=== PATIENT | male | born 1950 | race Caucasian/White ===

== ENCOUNTER 2022-05-20 16:34 | Outpatient (CLI) | payer MEDICARE, SELFPAY ==
[2022-05-20 10:11] LABS: Albumin* 4.8 g/dL (3.3-5.0)
[2022-05-20 10:12] LABS: Chloride* 99 mmol/L (96-114); Potassium* 4.4 mmol/L (3.6-5.1); Sodium* 137 mmol/L (135-149)
[2022-05-20 10:14] LABS: Aspartate Amino Transferase* 32 U/L (12-35); Bilirubin Total* 0.7 mg/dL (0.1-1.5); Blood Urea Nitrogen* 23 mg/dL (7-30); Carbon Dioxide* 32 mmol/L (20-32); Cholesterol* 189 mg/dL (90-199); Creatinine* 1.2 mg/dL (0.5-1.5); Estimated Glomerular Filt Rate 65 ml/min; Total Protein* 7.1 g/dL (6.0-8.3)
[2022-05-20 10:15] LABS: Alanine Aminotransferase* 29 U/L (4-50); Alkaline Phosphatase* 56 U/L (40-150); Calcium* 9.4 mg/dL (8.4-10.6); Glucose* 113 mg/dL (60-115); HDL Cholesterol* 76 mg/dL (>=40); LDL Cholesterol Calculated 99 mg/dL (<100); Triglycerides* 71 mg/dL (40-149)
[2022-05-20 10:43] LABS: PSA Screen* 0.64 ng/mL (0.10-4.00)
== END 2022-05-20 16:35 | disposition home or self-care (01) ==
PROVIDERS: PCP Internal Medicine; Visit Provider Internal Medicine
DX: Z00.00 Encounter for general adult medical examination without abnormal findings (principal); N52.9 Male erectile dysfunction, unspecified; E78.5 Hyperlipidemia, unspecified; I10 Essential (primary) hypertension; Z12.5 Encounter for screening for malignant neoplasm of prostate
CPT/HCPCS: 80053; 80061; 84153

== ENCOUNTER 2022-10-30 09:08 | Outpatient (CLI) | payer MEDICARE, SELFPAY ==
[2022-10-30 17:28] LABS: Albumin* 4.6 g/dL (3.3-5.0); Chloride* 104 mmol/L (96-114); Potassium* 4.5 mmol/L (3.6-5.1); Sodium* 139 mmol/L (135-149)
[2022-10-30 17:30] LABS: Creatinine* 1.5 mg/dL (0.5-1.5); Estimated Glomerular Filt Rate 49 ml/min
[2022-10-30 17:31] LABS: Alanine Aminotransferase* 25 U/L (4-50); Alkaline Phosphatase* 47 U/L (40-150); Aspartate Amino Transferase* 45 U/L (12-35); Bilirubin Total* 0.8 mg/dL (0.1-1.5); Blood Urea Nitrogen* 36 mg/dL (7-30); Calcium* 9.8 mg/dL (8.4-10.6); Carbon Dioxide* 28 mmol/L (20-32); Glucose* 109 mg/dL (60-115); Total Protein* 7.5 g/dL (6.0-8.3)
== END 2022-10-30 09:09 | disposition home or self-care (01) ==
PROVIDERS: PCP Internal Medicine; Visit Provider Internal Medicine
DX: N28.9 Disorder of kidney and ureter, unspecified (principal)
CPT/HCPCS: 80053

== ENCOUNTER 2022-11-03 11:34 | Outpatient (CLI) | payer MEDICARE, SELFPAY ==
[2022-11-03 14:27] LABS: Albumin* 4.6 g/dL (3.3-5.0); Chloride* 100 mmol/L (96-114); Sodium* 139 mmol/L (135-149)
[2022-11-03 14:28] LABS: Potassium* 4.7 mmol/L (3.6-5.1)
[2022-11-03 14:30] LABS: Alanine Aminotransferase* 27 U/L (4-50); Alkaline Phosphatase* 43 U/L (40-150); Aspartate Amino Transferase* 33 U/L (12-35); Bilirubin Total* 0.7 mg/dL (0.1-1.5); Blood Urea Nitrogen* 28 mg/dL (7-30); Carbon Dioxide* 33 mmol/L (20-32); Creatinine* 1.2 mg/dL (0.5-1.5); Estimated Glomerular Filt Rate 65 ml/min; Glucose* 111 mg/dL (60-115); Total Protein* 7.4 g/dL (6.0-8.3)
[2022-11-03 14:31] LABS: Calcium* 9.5 mg/dL (8.4-10.6)
== END 2022-11-03 11:35 | disposition home or self-care (01) ==
LOC: NFLDREF 11:36
PROVIDERS: PCP Internal Medicine; Visit Provider Internal Medicine
DX: N28.9 Disorder of kidney and ureter, unspecified (principal)
CPT/HCPCS: 80053

== ENCOUNTER 2023-01-19 13:00 | Outpatient (RCR) | payer MEDICARE, SELFPAY | END 2023-04-20 12:39 | disposition home or self-care (01) | PROVIDERS: PCP Internal Medicine; Visit Provider Internal Medicine | DX: M25.551 Pain in right hip (principal); Z51.89 Encounter for other specified aftercare | CPT/HCPCS: 97012; 97110; 97140; 97162 ==

== ENCOUNTER 2023-06-22 09:20 | Outpatient (CLI) | payer MEDICARE, SELFPAY | END 2023-06-22 09:21 | disposition home or self-care (01) | LOC: NFLDREF 06-23 17:50 | PROVIDERS: PCP Internal Medicine; Referring Provider Internal Medicine; Visit Provider Internal Medicine | DX: E78.5 Hyperlipidemia, unspecified (principal); I10 Essential (primary) hypertension; N28.9 Disorder of kidney and ureter, unspecified; N52.9 Male erectile dysfunction, unspecified; Z13.9 Encounter for screening, unspecified | CPT/HCPCS: 80053; 80061; 84153 ==

== ENCOUNTER 2023-06-30 10:02 | Outpatient (CLI) | payer MEDICARE, SELFPAY ==
--- NOTE | 2023-06-30 10:15 | CRLHL7_ITS ---
For Patients: As a result of the Century Cures Act, medical imaging exams and procedure reports are released immediately into your electronic medical record. You may view this report before your referring provider. If you have questions, please contact your health care provider. INDICATION: Memory loss. COMPARISON: 02/18/2021. TECHNIQUE: Multiplanar T1, T2, FLAIR and diffusion-weighted imaging. FINDINGS: Mild generalized volume loss. Scattered patchy T2/FLAIR signal hyperintensity within the white matter of both cerebral hemispheres are nonspecific but likely represent chronic deep white matter small ischemic changes. No intracranial hemorrhage. Compensatory mild dilatation ventricular system. Intracranial vascular flow voids are preserved. No mass effect or midline shift. No restricted diffusion to suggest acute ischemia. Bilateral orbits are unremarkable. Normal appearing sella. Visualized paranasal sinuses and mastoid air cells are unremarkable. IMPRESSION: 1. No acute intracranial abnormality. 2. Mild generalized volume loss. Scattered patchy T2/FLAIR signal hyperintensity within the white matter both cerebral hemispheres are nonspecific but likely represent chronic deep white matter small vessel ischemic changes. Dictated by Compa Huston MD @ 06/30/2023 1:55:13 PM (Electronically Signed)
== END 2023-06-30 10:03 | disposition home or self-care (01) ==
LOC: MRI 10:03
PROVIDERS: PCP Internal Medicine; Visit Provider Psychiatry & Neurology Neurology
DX: R41.3 Other amnesia (principal)
CPT/HCPCS: 70551

== ENCOUNTER 2023-07-02 06:56 | Emergency (ER) | payer MEDICARE, OTHER, SELFPAY ==
[2023-07-02 07:02] VITALS: BP 140/77; PULSE 75; RESP 16; TEMP 37.3; O2SAT 93; BMI 25.8
--- NOTE | 2023-07-02 08:13 | ED.GENADULT ---
HPI - General Adult General Chief complaint: Laceration/Wound Stated complaint: Fall-head lac Time Seen by Provider: 07/02/23 07:09 Source: patient and family Mode of arrival: ambulatory Limitations: no limitations History of Present Illness HPI narrative: 72-year-old male with a history of mild cognitive impairment presents to the emergency department after mechanical fall in his bathroom. He woke this morning and did not want to turn on the lights, as not to wake his . He was not experiencing any dizziness, neurological changes, chest pain. He simply tripped, falling forward, striking his head on the corner of the bathroom counter. He did not lose consciousness. The commotion okay his who attended to him quickly as well. No history of seizures, no intoxication. He does not take any anticoagulants. He was impressed with the amount of blood coming from the laceration but it seems to be slowing down now. He is brought to the emergency department by his spouse. He has a mild headache but denies any vision changes, focal neurological deficits. No prior history of significant head injury. agrees that he is acting at his baseline with no significant neurological changes. He did have an MRI just 2 days ago of his brain as part of a cognitive impairment workup. He has not taken any Tylenol or ibuprofen to help with symptoms. Past medical history notable for cognitive impairment, anxiety, hypertension, hyperlipidemia. Home meds reviewed, accurate as listed. No known drug allergies. He has a soft [place] accent and is the father in law of 1 of our pediatricians. We have a peyman conversation regarding barbecue. ROS notable for the skin symptoms as above only. Otherwise denies generalized, neurological, cardiac, musculoskeletal or other changes. Related Data Home Medications Medication Instructions Recorded Confirmed sildenafil (pulm.hypertension) 20 20 mg PO Q24H PRN 05/22/22 07/02/23 mg tablet aspirin 81 mg capsule 81 mg PO QDAY 11/03/22 07/02/23 cholecalciferol (vitamin D3) 50 50 mcg PO QDAY 11/03/22 07/02/23 mcg (2,000 unit) capsule gabapentin 100 mg capsule 100 mg PO Q12H 11/03/22 07/02/23 thiamine HCl (vitamin B1) 50 mg 50 mg PO QDAY 11/03/22 07/02/23 tablet Previous Rx's Medication Instructions Recorded donepezil 5 mg tablet 5 mg PO QDAY Dementia #90 tabs 06/24/23 escitalopram oxalate 10 mg tablet 10 mg PO QDAY Depression #90 tabs 06/24/23 lisinopril 20 1 tab PO DAILY Hypertension #90 06/24/23 mg-hydrochlorothiazide 12.5 mg tabs tablet memantine 10 mg tablet 10 mg PO BID Dementia #90 tabs 06/24/23 simvastatin 20 mg tablet 20 mg PO .Bedtime Hyperlipidemia 06/24/23 #90 tabs Allergies Allergy/AdvReac Type Severity Reaction Status Date / Time No Known Allergies Allergy Unknown Unverified 06/24/23 13:07 [facility] Medical History Elevated serum creatinine ?R79.89 - Other specified abnormal findings of blood chemistry (ICD-10) Dementia ?F03.90 - Unspecified dementia, unspecified severity, without behavioral disturbance, psychotic disturbance, mood disturbance, and anxiety (ICD-10) Renal insufficiency ?N28.9 - Disorder of kidney and ureter, unspecified (ICD-10) Right hip pain ?M25.551 - Pain in right hip (ICD-10) Hyperlipidemia ?E78.5 - Hyperlipidemia, unspecified (ICD-10) Anxiety ?F41.9 - Anxiety disorder, unspecified (ICD-10) Cognitive dysfunction ?F09 - Unspecified mental disorder due to known physiological condition (ICD-10) Encounter for pre-operative examination ?Z01.818 - Encounter for other preprocedural examination (ICD-10) Social History What is your current living situation?: I presently have a place to live Problems where you live: declined to answer In the past 12 months, utilities in danger of being shut off: no In past 12 months, lack of transportation kept you from medical appts, meetings, work, or getting things needed for daily living: no In the past 12 mos, have been you worried that your food would run out before you had money to buy more?: never true In the past 12 mos, the food you bought just didn't last and you didn't have money to buy more?: never true Smoking Status: Former smoker Do you use any of these nicotine containing products: None Non-prescribed substance use: denies use How often does anyone, including family, friends and others, physically hurt you: never How often does anyone, including family, friends and others, insult or talk down to you: never How often does anyone, including family, friends and others, threaten you with harm: never How often does anyone, including family, friends and others, scream or curse at you: never Little interest or pleasure in doing things: not at all Feeling down, depressed, or hopeless: not at all Exam Const: Vital Signs, click to edit/add: Vital Signs - 24 hr 07/02/23 07:02 Temperature 99.1 F Pulse Rate [Pulse Oximeter] 75 Respiratory Rate 16 Blood Pressure [Le ft Upper Arm] 140/77 H Pulse Oximetry 93 Oxygen Delivery Me thod Room Air Documenting provider has reviewed patient's vital signs: yes Common normals: no apparent distress General appearance: cooperative, comfortable and well kempt HENMT: Other: Scalp with obvious 3 cm curved flap style thick laceration on the center of the forehead just above the nasal bridge. It is full epidermis and dermis down to the muscular layer. There is also a 2 cm more superficial laceration of the right upper eyelid, nonbleeding. Lid function is not impaired though there is bruising. Eye: Common normals: PERRL, EOMs intact bilaterally and conjunctivae normal Conjunctiva: conjunctiva(e) normal Pupil: PERRL Other: Bruising to right eyelid and orbit, no orbital fracture signs, crepitus or deformity. No tenderness with range of motion of eyes or visual impairment. Neck & C-Spine: Common normals: full ROM and no lymphadenopathy Cervical spine: cervical ROM normal; no pain with cervical ROM Resp: Common normals: normal respiratory effort, no use of accessory muscles and clear to auscultation bilaterally Effort & inspection: able to speak in complete sentences Auscultation: clear to auscultation bilaterally Cardio: Common normals: regular rate, regular rhythm, S1 normal heart sound, S2 normal heart sound and no murmurs Rate: regular rate Rhythm: regular rhythm Heart sounds: S1 normal and S2 normal Neuro: Cleveland Coma Scale: document GCS findings Cleveland coma scale eye opening: Spontaneous (4) [place] coma scale verbal response: Orientated (5) Dave coma scale motor response: Obey commands (6) Dave coma scale total score: 15 Speech: speech normal Motor exam: strength 5/5 throughout and no tremor noted Psych: Common normals: thought process normal Appearance: well kempt Mood and affect: euthymic mood Thought process: normal thought process Thought content: normal thought content Other: Answers questions well, no repetitive questions or agitation. Memory very good for clinical scenario. Skin: Narrative: Facial laceration as described above and and bruising of right eyelid, no other areas of injury. Course Course ED Course: 3 cm laceration on forehead is oozing slightly, closure recommended. No significant signs of severe head injury or concussion, not anticoagulated. Do not recommend head CT. Procedure, laceration repair. Verbal consent obtained, wiped with alcohol wipe and injected with 2 mL of 1% lidocaine with epinephrine with good anesthesia. Area then cleansed with Betadine x2. Examined for foreign body, none seen. Five simple interrupted sutures of 4-0 Monocryl were placed with good reapproximation, cosmetic closure and hemostasis. Well tolerated. Covered with antibiotic ointment and to Band-Aids. Laceration on right eyelid re-examined and hemostatic, not repaired. Counseled on signs and symptoms of head injury. Rest recommended, lots of water today. Alarm symptoms including seizures, loss of consciousness, persistent vomiting or worsening neurological status would warrant ED evaluation. Suture removal in 7-10 days, will need to schedule a clinic appointment or have these removed by an appropriate clinician. Do not recommend head CT. They verbalized understanding and agreement and have no further questions. Vital Signs Vital signs: Initial Vital Signs Temperature 99.1 F 07/02/23 07:02 Temperature Source Temporal Artery Scan 07/02/23 07:02 Pulse Rate 75 07/02/23 07:02 Respiratory Rate 16 07/02/23 07:02 Blood Pressure 140/77 H 07/02/23 07:02 Blood Pressure Mean 98 07/02/23 07:02 Blood Pressure Position Supine 07/02/23 07:02 Pulse Oximetry 93 07/02/23 07:02 Oxygen Delivery Method Room Air 07/02/23 07:02 Vital Signs Temperature 99.1 F 07/02/23 07:02 Pulse Rate 75 07/02/23 07:02 Respiratory Rate 16 07/02/23 07:02 Blood Pressure 140/77 H 07/02/23 07:02 Pulse Oximetry 93 07/02/23 07:02 Oxygen Delivery Method Room Air 07/02/23 07:02 Temperature 99.1 F 07/02/23 07:02 Pulse Rate 75 07/02/23 07:02 Respiratory Rate 16 07/02/23 07:02 Blood Pressure 140/77 H 07/02/23 07:02 Pulse Oximetry 93 07/02/23 07:02 Oxygen Delivery Method Room Air 07/02/23 07:02 Discharge Plan Discharge Clinical Impression: Facial laceration Patient Disposition: Home w/ Parent or Adult Condition: Improved Instructions: Laceration (DC) Additional Instructions: As we discussed, there were 5 stitches placed in the laceration in the middle of your forehead. These will need to be taken out in about a week to 10 days. You may make an appointment in the clinic or have these taken out by other appropriate means. Please leave the dressing in place for today. Once daily, remove the bandage, gently clean away any debris and reapply antibiotic ointment or plain Vaseline once daily. Replace a new dressing or large Band-Aid. I would expect some mild symptoms of head injury or mild concussions such as fatigue, headache, dizziness. It is okay to use Tylenol 1000 mg every 6 hours and or ibuprofen 400 mg 3 times daily. Rest for today, light activity for tomorrow and then gradually increasing activity as tolerated. If there is any loss of consciousness, neurological changes, seizures, persistent vomiting, I would recommend repeat evaluation Activity Level: Activity as Tolerated Discharge Diet: Regular Prescriptions: No Action sildenafil (pulm.hypertension) 20 mg tablet 20 mg PO Q24H PRN simvastatin 20 mg tablet 20 mg PO .Bedtime Qty: 90 3RF memantine 10 mg tablet 10 mg PO BID Qty: 90 3RF lisinopril-hydrochlorothiazide 20-12.5 mg tablet 1 tab PO DAILY Qty: 90 3RF escitalopram oxalate 10 mg tablet 10 mg PO QDAY Qty: 90 3RF donepezil 5 mg tablet 5 mg PO QDAY Qty: 90 3RF gabapentin 100 mg capsule 100 mg PO Q12H aspirin 81 mg capsule 81 mg PO QDAY thiamine HCl (vitamin B1) 50 mg tablet 50 mg PO QDAY cholecalciferol (vitamin D3) 50 mcg (2,000 unit) capsule 50 mcg PO QDAY Follow Up/Referrals: Remy Marquez MD [Primary Care Provider] - Stand Alone Forms: MyHealth Info Instructions
--- NOTE | 2023-07-02 08:46 | ED.NURSE ---
Patient left ED prior to receiving paper discharge instruction.
== END 2023-07-02 08:46 | disposition home or self-care (01) ==
LOC: ED 08:11
PROVIDERS: Emergency Provider Family Medicine; PCP Internal Medicine
DX: S01.81XA Laceration without foreign body of other part of head, initial encounter (principal); W01.10XA Fall on same level from slipping, tripping and stumbling with subsequent striking against unspecified object, initial encounter; Y92.012 Bathroom of single-family (private) house as the place of occurrence of the external cause
CPT/HCPCS: 12011; 99283

== ENCOUNTER 2023-12-15 14:19 | Outpatient (CLI) | payer MEDICARE, SELFPAY ==
--- NOTE | 2023-12-15 14:30 | MR_ITS ---
Patient: ROSEMARY BARNEY Facility:?[facility] Patient ID:?[id number] Site Patient ID:?[id number]. Site :?[id number] Study:?MRI-Head W/O-12/15/2023 3:32:16 PM Ordering Physician:ABDELRAHMAN MCKEON Final Report: INDICATION: Alzheimer`s dementia. TECHNIQUE: Multiplanar multisequence noncontrast MR images of the brain. COMPARISON: MRI brain 06/30/2023, CT brain 02/18/2021. FINDINGS: Prominence of the ventricles and sulci compatible with mild diffuse cerebral volume loss. No mass effect or midline shift. Stable scattered FLAIR hyperintensities in the supratentorial white matter, typical for mild chronic microvascular ischemic changes. Stable chronic lacunar infarction left basal ganglia associated with ex vacuo dilatation of the left frontal horn. No intracranial hemorrhage or pathologic extra-axial fluid collection. Punctate focus of diffusion restriction within the posterior left occipital lobe (series 5, image 35), compatible with acute to subacute infarction. The major arterial flow voids of the skullbase are preserved. The globes are symmetric. Mild paranasal sinus mucosal thickening. Trace mastoid fluid bilaterally. IMPRESSION: 1. Punctate acute to subacute infarction within the left occipital lobe. 2. Stable chronic lacunar infarction left basal ganglia. 3. Stable mild chronic microvascular ischemic changes and diffuse cerebral volume loss. Dictated by Margarito Cartwright MD @ 12/15/2023 3:55:15 PM Signed by:?Margarito Cartwright MD @12/15/2023 3:55:15 PM (Electronic Signature)
== END 2023-12-15 14:20 | disposition home or self-care (01) ==
LOC: MRI 14:21
PROVIDERS: PCP Internal Medicine; Visit Provider Psychiatry & Neurology Neurology
DX: G30.9 Alzheimer's disease, unspecified (principal); I63.81 Other cerebral infarction due to occlusion or stenosis of small artery; I67.82 Cerebral ischemia; F02.80 Dementia in other diseases classified elsewhere, unspecified severity, without behavioral disturbance, psychotic disturbance, mood disturbance, and anxiety
CPT/HCPCS: 70551

== ENCOUNTER 2024-02-25 13:52 | Outpatient (CLI) | payer MEDICARE, SELFPAY ==
--- OUTSIDE RECORDS SUMMARY | 2024-02-25 13:55 | XMS_ITS | Clinical Summary ---
Author Organization [facility] Address [place], [place] [address] Care Team Providers Care Sane Nurse Name Role Phone Duke De León MD Primary Care Provider [phone] Allergies No known active allergies Medications Medication Sig Dispensed Refills Start Date End Date Status ATENOLOL 25 MG TAB take 1 tablet (25 mg) by oral route once daily 30 1 year 08/24/2007 Active HYDROCHLOROTHIAZIDE 50 MG TAB take 1 tablet (50 mg) by oral route once daily 30 1 year 08/24/2007 Active K-DUR 20 MEQ TABIndications:Hypopot assemia take 1 tablet (20 meq) by oral route once daily with food 30 2 08/24/2007 Active Active Problems Problem Noted Date Diagnosed Date Hypopotassemia 08/24/2007 Unspecified essential hypertension Other and unspecified hyperlipidemia Immunizations Name Administration Dates Next Due AMB Influenza, IIV3 (Age >=3 years)(Flu Clinic [facility]) 06/17/2013 Influenza, IIV3 (Age >=3 years) 08/03/2007 Td (Age >=7 Years) 08/12/2005 Social History Tobacco Use Types Packs/Day Years Used Date Smoking Tobacco: Former Comments:quit 15 years ago Alcohol Use Standard Drinks/Week Comments Yes 0 (1 standard drink = 0.6 oz pure alcohol) drinks a couple weeks a month- a couple drinks a day when drinkning Sex and Gender Information Value Date Recorded Sex Assigned at Not on file Gender Identity Not on file Sexual Orientation Not on file Obstetrics History Last Filed Vital Signs Vital Sign Reading Time Taken Comments Blood Pressure 145/87 12/02/2007 9:16 AM CDT Pulse 157 12/02/2007 9:12 AM CDT Temperature 36.7 ??C (98.1 ??F) 12/02/2007 9:12 AM CD T Respiratory Rate 18 02/18/2007 1:00 PM CDT Oxygen Saturation 97% 02/18/2007 1:00 PM CDT Inhaled Oxygen Concentration - - Weight 84.8 kg (187 lb) 12/02/2007 9:12 AM CDT Height - - Body Mass Index - - Plan of Treatment Upcoming Encounters Date Type Department Care Team (Late st Contact Info) Description 02/25/2024 2:00 PM CDT Ancillary Procedure Advance [facility] at [facility] [address] [place] [address] Health Maintenance Due Date Last Done Comments Tdap 1961 Depression screening for age 12+ 1962 BMI (ht and wt on same day) for age 18+ 1968 Hepatitis C screening for age 18-79 1968 Colonoscopy through age 75 12/25/1995 Lipids for age 45-75 12/25/1995 Zoster (shingles) series for age 50+ (1 of 2) 2000 Tetanus booster 08/12/2015 08/12/2005 Pneumococcal series for age 65+ (1 of 1 - PCV) 12/25/2015 COVID-19 vaccine series ( - 2022- season) 2023 Influenza for age 65+ 05/15/2024 06/17/2013, 007 Care Teams Sane Nurse Relationship Specialty Start Date End Date Duke De León MD [address] [facility] [address] [place] [address] PCP - General 12/27/05
== END 2024-02-25 13:53 | disposition home or self-care (01) ==
PROVIDERS: PCP Internal Medicine; Visit Provider Psychiatry & Neurology Neurology
DX: I63.9 Cerebral infarction, unspecified (principal); I35.1 Nonrheumatic aortic (valve) insufficiency; I34.0 Nonrheumatic mitral (valve) insufficiency; I37.1 Nonrheumatic pulmonary valve insufficiency; G30.9 Alzheimer's disease, unspecified
CPT/HCPCS: 93306

== ENCOUNTER 2024-07-19 09:59 | Outpatient (CLI) | payer MEDICARE, SELFPAY ==
--- OUTSIDE RECORDS SUMMARY | 2024-07-21 10:58 | XMS_ITS | Clinical Summary ---
Author Organization [facility] Address [place], [place] [address] Care Team Providers Care Basketball Player Name Role Phone Duke De León MD Primary Care Provider [phone] Allergies No known active allergies Medications Medication [...] Mass Index - - Plan of Treatment Health Maintenance Due Date Last Done Comments [...] PCV) 12/25/2015 COVID-19 vaccine series ( - 2023- season) 2024 Influenza for age 65+ 05/15/2024 06/17/2013, 007 Care Teams Basketball Player Relationship Specialty Start Date End Date Duke De León MD [address] [place] [address] [address] [place], [place] [id number] PCP - General 12/27/05
== END 2024-07-19 10:00 | disposition home or self-care (01) ==
LOC: NFLDREF 07-21 10:56
PROVIDERS: PCP Internal Medicine; Referring Provider Internal Medicine; Visit Provider Internal Medicine
DX: E78.5 Hyperlipidemia, unspecified (principal); I10 Essential (primary) hypertension; Z12.5 Encounter for screening for malignant neoplasm of prostate
CPT/HCPCS: 80053; 80061; G0103

== ENCOUNTER 2024-07-22 14:08 | Outpatient (CLI) | payer MEDICARE, SELFPAY ==
--- OUTSIDE RECORDS SUMMARY | 2024-07-26 09:33 | XMS_ITS | Clinical Summary ---
Author Organization [facility] Address [place], [place] [address] Care Team Providers Care Millroom Supervisor Name Role Phone Duke De León MD Primary Care Provider [phone] Allergies No known active allergies Medications Medication [...] Influenza, IIV3 (Age >=3 years)(Flu Clinic [facility]) 06/17/2013 Influenza, IIV3 (Age >=3 years) [...] age 65+ 05/15/2024 06/17/2013, 007 Care Teams Millroom Supervisor Relationship Specialty Start Date End Date Duke De León MD [address] [place] [address] [address] [place], [place] [address] PCP - General 12/27/05
== END 2024-07-22 14:09 | disposition home or self-care (01) ==
LOC: NFLDREF 07-26 09:32
PROVIDERS: PCP Internal Medicine; Referring Provider Internal Medicine; Visit Provider Internal Medicine
DX: R32 Unspecified urinary incontinence (principal)
CPT/HCPCS: 87086

== ENCOUNTER 2024-09-28 14:27 | Emergency (ER) | payer MEDICARE, SELFPAY ==
[2024-09-28 14:47] VITALS: BP 99/56; PULSE 86; RESP 18; TEMP 37; O2SAT 92; BMI 27.3
[2024-09-28 15:27] LABS: PCR FLU A POSITIVE PCR FLU A (Negative); PCR FLU B Negative PCR FLU B (Negative); PCR RSV Negative PCR RSV (Negative); SARS PCR* Negative SARS-CoV-2 (Negative)
[2024-09-28 16:42] VITALS: BP 128/57; PULSE 74; RESP 19; TEMP 37.2; O2SAT 96
--- NOTE | 2024-09-28 16:58 | ED_ITS ---
HPI - General Adult General Date Seen: 09/28/24 Chief complaint: Weakness Stated complaint: Huge mental status change-flu symptoms too, fever Time Seen by Provider: 09/28/24 16:56 History of Present Illness HPI narrative: 73 yo M with history of dementia and cognitive impairment, renal insufficiency, hyperlipidemia, anxiety, hypertension, pulmonary hypertension, who presents to the ER today with his . She is concerned that ?something is going on. ? He presents to the ER today with his , who provides his history. He is not able to provide good history because of his dementia and cognitive impairment he has dementia but is able live at home with his notes that they were visit by their grandchildren over the weekend and their grandchildren had high fever and cough. She developed symptoms of fever and cough to days ago on Thursday if he developed symptoms yesterday. He started having a cough, complaining of sore throat yesterday during the day. He felt warm but she was not able to measure an objective fever. He just could melissa ate with thermometer because of his dementia. Overnight he also had change in mental status. He is normally demented and needs a lot of supervision but is generally docile and restful at night. Last night he was restless. He was up multiple times walking. He seemed confused he was trying to go in the closets and rooms where he does not normally go. She noted that he seemed a little bit unsteady as well while walking. He did not fall. He was up most of the night and she had to put a lot of effort into keeping him safe. It was difficult for her to redirect him back to bed. Because of the symptoms, she brought him to the ER this afternoon. Although he has a cough he is not having any difficulty breathing. He has had a poor appetite but no vomiting. No diarrhea. He has had 2 episodes of incontinence of urine, which is unusual for him. No rash. Related Data Home Medications ?Medication ?Instructions ?Recorded ?Confirmed sildenafil (pulm.hypertension) 20 20 mg PO Q24H PRN 05/22/22 07/21/24 mg tablet cholecalciferol (vitamin D3) 50 50 mcg PO QDAY 11/03/22 07/21/24 mcg (2,000 unit) capsule gabapentin 100 mg capsule 100 mg PO Q12H 11/03/22 07/21/24 thiamine HCl (vitamin B1) 50 mg 50 mg PO QDAY 11/03/22 07/21/24 tablet clopidogrel 75 mg tablet 75 mg PO DAILY 07/12/24 07/21/24 simvastatin 20 mg tablet 20 mg PO QHS Hyperlipidemia 07/26/24 07/26/24 Previous Rx's ?Medication ?Instructions ?Recorded donepezil 5 mg tablet 5 mg PO QDAY Dementia #90 tabs 06/24/23 memantine 10 mg tablet 10 mg PO BID Dementia #90 tabs 06/24/23 escitalopram oxalate 20 mg tablet 20 mg PO QDAY #90 tabs 05/23/24 lisinopril 20 1 tab PO DAILY Hypertension #90 08/24/24 mg-hydrochlorothiazide 12.5 mg tabs tablet oseltamivir 75 mg capsule (Tamiflu) 75 mg PO BID 5 days #10 caps 09/28/24 Allergies Allergy/AdvReac Type Severity Reaction Status Date / Time No Known Allergies Allergy Unknown Verified 09/06/24 09:07 [facility] Medical History (Updated 09/28/24 @ 18:15 by Esdras Hernandez MD) Urinary incontinence ?R32 - Unspecified urinary incontinence (ICD-10) Dementia ?F03.90 - Unspecified dementia, unspecified severity, without behavioral disturbance, psychotic disturbance, mood disturbance, and anxiety (ICD-10) Renal insufficiency ?N28.9 - Disorder of kidney and ureter, unspecified (ICD-10) Right hip pain ?M25.551 - Pain in right hip (ICD-10) Hyperlipidemia ?E78.5 - Hyperlipidemia, unspecified (ICD-10) Anxiety ?F41.9 - Anxiety disorder, unspecified (ICD-10) Encounter for pre-operative examination ?Z01.818 - Encounter for other preprocedural examination (ICD-10) Social History (Updated 07/21/24 @ 15:56 by Brenda Castellano ~ [facility] [place]) What is your current living situation?: I presently have a place to live Problems where you live: declined to answer In the past 12 months, utilities in danger of being shut off: no In past 12 months, lack of transportation kept you from medical appts, meetings, work, or getting things needed for daily living: no In the past 12 mos, have been you worried that your food would run out before you had money to buy more?: never true In the past 12 mos, the food you bought just didn't last and you didn't have money to buy more?: never true Smoking Status: Former smoker Do you use any of these nicotine containing products: None Second hand tobacco smoke exposure: No How often do you have a drink containing alcohol: never How often do you have six or more drinks on one occasion: Never AUDIT-C Alcohol total score: 0 Non-prescribed substance use: denies use How often does anyone, including family, friends and others, physically hurt you : never How often does anyone, including family, friends and others, insult or talk down to you: never How often does anyone, including family, friends and others, threaten you with harm: never How often does anyone, including family, friends and others, scream or curse at you: never service: No Exam Narrative: Exam Narrative: Examined in the hallway because the ER is full during the influenza epidemic. Therefore I am not able to fully disrobed this patient for exam. Constitutional: Appears well-developed and well-nourished. Alert. Polite and cooperative. Poor historian because of his dementia. He is able to Greet me and tell me his 1st and last name. provides the rest of his history. Non toxic. HENT: Head: Atraumatic. Nose: Nose normal. Mouth/Throat: Wearing a face mask, removed for exam. Oral mucosa is clear and moist. no trismus. Pharynx normal. Tonsils symmetric. No tonsillar enlargement, erythema, or exudate. Eyes: Conjunctivae normal. EOM normal. Pupils equal, round, and reactive to light. No scleral icterus. Neck: Normal range of motion. Neck supple. No tracheal deviation present. Cardiovascular: Normal rate, regular rhythm. No gallop. No friction rub. No murmur heard. Symmetric radial artery pulses Pulmonary/Chest: Occasional wet sounding cough but no production of sputum. Effort normal. No stridor. No respiratory distress. No wheezes. No rales. No rhonchi . No tenderness. Abdominal: Soft. No distension. No mass. No tenderness. No rebound. No guarding. Musculoskeletal: RUE: Normal range of motion. No tenderness. No deformity LUE: Normal range of motion. No tenderness. No deformity RLE: Normal range of motion. No edema. No tenderness. No deformity LLE: Normal range of motion. No edema. No tenderness. No deformity Neurological: Alert and oriented to person, and knows that he is in the hospital, but not oriented to date. Has baseline dementia. At this point seems at baseline but last night was apparently much more confused. Normal strength. CN II-VII intact. No sensory deficit. GCS eye subscore is 4. GCS verbal subscore is 5. GCS motor subscore is 6. Normal coordination Skin: Skin is warm and dry. No rash noted. No pallor. Normal capillary refill. Psychiatric: Normal mood. Normal affect. Limited by dementia. Const: Vital Signs, click to edit/add: Vital Signs - 24 hr 09/28/24 14:47 09/28/24 16:42 09/28/24 18:42 Temperature 98.6 F 99.0 F Pulse Rate [Pulse Oximeter] 86 74 83 Respiratory Rate 18 19 18 Blood Pressure [Ri ght Upper Arm] 99/56 L 128/57 L 134/63 Pulse Oximetry 92 96 92 Oxygen Delivery Me thod Room Air Room Air Room Air Course Vital Signs Vital signs: Initial Vital Signs Temperature 98.6 F 09/28/24 14:47 Temperature Source Temporal Artery Scan 09/28/24 14:47 Pulse Rate 86 09/28/24 14:47 Pulse Rhythm Regular 09/28/24 14:47 Respiratory Rate 18 09/28/24 14:47 Blood Pressure 99/56 L 09/28/24 14:47 Blood Pressure Mean 70 09/28/24 14:47 Blood Pressure Position Sitting 09/28/24 14:47 Pulse Oximetry 92 09/28/24 14:47 Oxygen Delivery Method Room Air 09/28/24 14:47 Vital Signs Temperature 98.6 F 09/28/24 14:47 Pulse Rate 86 09/28/24 14:47 Respiratory Rate 18 09/28/24 14:47 Blood Pressure 99/56 L 09/28/24 14:47 Pulse Oximetry 92 09/28/24 14:47 Oxygen Delivery Method Room Air 09/28/24 14:47 Temperature 99.0 F 09/28/24 16:42 Pulse Rate 83 09/28/24 18:42 Respiratory Rate 18 09/28/24 18:42 Blood Pressure 134/63 09/28/24 18:42 Pulse Oximetry 92 09/28/24 18:42 Oxygen Delivery Method Room Air 09/28/24 18:42 Medications Administered Medications: Generic Name Dose Route Start Last Admin Trade Name Leonel PRN Reason Stop Dose Admin Oseltamivir Phosphate 75 mg 09/28/24 18:08 09/28/24 18:30 Oseltamivir Phosphate 75 Mg Capsule PO 09/28/24 18:09 75 mg ONCE ONE Administration Medical Decision Making MDM Narrative Medical decision making narrative: This patient presents for evaluation of cough, sore throat, so fever and chills, also associated with change in his mental status from his baseline dementia. Symptoms began yesterday. This is consistent with respiratory infection, with likely superimposed delirium. Viral testing is positive for influenza A. Negative for COVID and RSV. Chest x-ray is negative for pneumonia. With his altered mental status broad differential is considered. Head CT scan shows no evidence for any acute intracranial hemorrhage. He is not having any focal deficits to suggest an acute stroke. Urinalysis is normal. No sign of UTI.. Suspect that this is delirium from his influenza. There is no signs at this point of serious bacterial infection such as OM, RPA, epiglottitis, DOG BARBER, strep pharyngitis, pneumonia, sinusitis, meningitis, bacteremia, serious bacterial infection. reports that he has had diminished appetite today but he has not had any vomiting or diarrhea. He is drinking adequate fluids here in the ER. No significant gastrointestinal symptoms at this point. He does have a mild increase in BUN and creatinine. Baseline creatinine is 1.5, today of 2.1. He is producing urine after drinking fluids here in the ER. With his delirium and restlessness last night, his and I had a conversation about whether on he is safe to manage at home. From a respiratory/hemodynamic standpoint he is not displaying signs of respiratory distress, hypoxia, sepsis that would require hospitalization. However with delirium and altered mental status, we wanted to make sure that he was safe in his home environment. says that he was quite a handful last night but she is comfortable managing him at home environment. Therefore , discharge home for now. Precautions for return to the ER reviewed. will start him on Tamiflu with 1st dose being given here in the ER today to try to prevent worsening illness. Return to ED for worsening confusion, agitation, falls, trouble breathing, dehydration, fever > 103, protracted vomiting, or other worsening. Lab Data Labs: Lab Results 09/28/24 09/28/24 09/28/24 Range/Units 14:41 17:24 17:45 WBC 10.16 (4.50-11.00) K/uL RBC 4.33 (4.30-5.90) m/uL Hgb 13.4 L (13.5-17.5) gm/dL Hct 41.1 (37.0-53.0) % MCV 95 (80-100) fL MCH 31 (26-34) pg MCHC 33 (32-36) gm/dL RDW Coeff of Quin 13.6 (11.5-15.5) % Plt Count 193 (140-440) K/uL Neut % (Auto) 84.6 H (42.0-72.0) % Lymph % (Auto) 4.6 L (20-44) % Nicholas % (Auto) 10.2 (0.0-11.0) % Eos % (Auto) 0.0 (0.0-7.0) % Baso % (Auto) 0.2 (0.0-3.0) % Neut # (Auto) 8.60 H (1.7-7.0) K/uL Lymph # (Auto) 0.50 L (0.90-2.90) K/uL Nicholas # (Auto) 1.00 H (0.00-0.90) K/UL Eos # (Auto) 0.00 (0.00-0.50) K/uL Baso # (Auto) 0.02 (0.00-0.30) K/uL Abs Immat Gran (auto) 0.04 (0.00-0.30) K/uL Imm/Tot Granulo (auto) 0.4 % Sodium 138 (135-149) mmol/L Potassium 4.5 (3.6-5.1) mmol/L Chloride 103 (96-114) mmol/L Carbon Dioxide 24 (20-32) mmol/L Anion Gap 11 (7-15) mEq/L BUN 37 H (7-30) mg/dL Creatinine 2.1 H (0.5-1.5) mg/dL Estimated Creat Clear 31.33 Estimated GFR 33 ml/min Glucose 108 (60-115) mg/dL Lactate 0.8 (0.5-1.9) mmol/L Calcium 9.1 (8.4-10.6) mg/dL Urine Color Yellow (Yellow) Urine Appearance Clear (Clear) Urine pH 5.5 (5.0-8.5) Ur Specific [place] 1.025 (1.000-1.030) Urine Protein 1+ A (Negative) Urine Glucose (UA) Negative (Negative) Urine Ketones Negative (Negative) Urine Blood Trace-intact A (Negative) Urine Nitrite Negative (Negative) Urine Bilirubin Negative (Negative) Urine Urobilinogen 0.2 (0.2-1.0) Ur Leukocyte Esterase Negative (Negative) Urine RBC 0-2 (0-2) Urine WBC 0-2 (0-5) Ur Squamous Epith Cells Few (None-Few) Urine Bacteria Few A (None) SARS-CoV-2 (PCR) Negative SARS-CoV-2 (Negative) Influenza Type A (PCR) POSITIVE PCR FLU A A (Negative) Influenza Type B (PCR) Negative PCR FLU B (Negative) RSV (PCR) Negative PCR RSV (Negative) Imaging Data CT scan - head: Attestation: I have reviewed the pertinent imaging results. My impression: Negative Radiologist's impression: IMPRESSION: No acute intracranial abnormality. Chest x-ray: Attestation: I have reviewed the pertinent imaging results. My impression: No focal infiltrates Radiologist's impression: IMPRESSION: Negative chest. Discharge Plan Discharge Clinical Impression: Influenza A Patient Disposition: Home w/ Parent or Adult Condition: Guarded Instructions: Influenza (DC) Additional Instructions: As we discussed, please come back to the ER right away if you have any concerns, especially worsening confusion, worsening unsteadiness, falls, trouble breathing or worsening cough, chest pain, or if he develops higher fever, uncontrolled nausea vomiting, if he will not drink enough or develops dehydration. Please continue the Tamiflu twice daily for 5 days,. His next dose is due tomorrow morning Try to help him drink plenty of fluids and stay hydrated. Add solid food as he will tolerate. Continue his other regular medications for now. Prescriptions: New oseltamivir [Tamiflu] 75 mg capsule 75 mg PO BID 5 Days Qty: 10 0RF No Action sildenafil (pulm.hypertension) 20 mg tablet 20 mg PO Q24H PRN memantine 10 mg tablet 10 mg PO BID Qty: 90 3RF donepezil 5 mg tablet 5 mg PO QDAY Qty: 90 3RF gabapentin 100 mg capsule 100 mg PO Q12H thiamine HCl (vitamin B1) 50 mg tablet 50 mg PO QDAY cholecalciferol (vitamin D3) 50 mcg (2,000 unit) capsule 50 mcg PO QDAY clopidogrel 75 mg tablet 75 mg PO DAILY simvastatin 20 mg tablet 20 mg PO QHS escitalopram oxalate 20 mg tablet 20 mg PO QDAY Qty: 90 0RF lisinopril-hydrochlorothiazide 20-12.5 mg tablet 1 tab PO DAILY Qty: 90 3RF Follow Up/Referrals: Remy Marquez MD [Primary Care Provider] - Stand Alone Forms: [employer] Medical Info Instructions
--- NOTE | 2024-09-28 17:23 | CRLHL7_ITS ---
For Patients: As a result of the Cures Act, medical imaging exams and procedure reports are released immediately into your electronic medical record. You may view this report before your referring provider. If you have questions, please contact your health care provider. INDICATION: Flu cough fever TECHNIQUE: Two view chest. FINDINGS: The lungs are clear. The heart, mediastinum and pulmonary vessels are of normal size. There is no evidence of pleural disease. IMPRESSION: Negative chest. Dictated by Sonia Garnett MD @ 09/28/2024 6:37:04 PM (Electronically Signed)
--- NOTE | 2024-09-28 17:24 | CRLHL7_ITS ---
For Patients: As a result of the Century Cures Act, medical imaging exams and procedure reports are released immediately into your electronic medical record. You may view this report before your referring provider. If you have questions, please contact your health care provider. INDICATION: Altered mental status, FluA + TECHNIQUE: CT of the head was performed without IV contrast. COMPARISON: Report 12/15/2023. FINDINGS: Parenchyma: No acute hemorrhage, infarction, or mass. Mild scattered periventricular white matter hypoattenuation is nonspecific and is favored to represent chronic small vessel ischemic disease. Ventricles and extra-axial spaces: Mild involutional changes. Visualized paranasal sinuses: Mild mucosal thickening of the bilateral maxillary sinuses. Mastoid air cells: Clear. Bones: No focal abnormality. Additional comment: None. IMPRESSION: No acute intracranial abnormality. Please note that all CT scans at this facility use dose modulation, iterative reconstruction, and/or weight-based dosing when appropriate to reduce radiation dose to as low as reasonably achievable. Dictated by Bashir Ambrose MD @ 09/28/2024 6:33:59 PM (Electronically Signed)
[2024-09-28 17:47] LABS: Lactate* 0.8 mmol/L (0.5-1.9)
[2024-09-28 17:48] LABS: Basophils Absolute Auto 0.02 K/uL (0.00-0.30); Basophils Percent Auto 0.2 % (0.0-3.0); Hematocrit 41.1 % (37.0-53.0); Hemoglobin* 13.4 gm/dL (13.5-17.5); Immature Granulocytes Abs Auto 0.04 K/uL (0.00-0.30); Immature Granulocytes Pct Auto 0.4 %; Lymphocytes Percent Auto 4.6 % (20-44); Mean Corpuscular HGB Conc 33 gm/dL (32-36); Mean Corpuscular Hemoglobin 31 pg (26-34); Mean Corpuscular Volume 95 fL (80-100); Monocytes Percent Auto 10.2 % (0.0-11.0); Neutrophils Percent Auto 84.6 % (42.0-72.0); Platelet Count* 193 K/uL (140-440); RDW Coefficient of Variation % 13.6 % (11.5-15.5); Red Blood Count 4.33 m/uL (4.30-5.90); White Blood Count* 10.16 K/uL (4.50-11.00)
--- OUTSIDE RECORDS SUMMARY | 2024-09-28 17:51 | XMS_ITS | Clinical Summary ---
Author Organization [facility] Address [place], [place] [address] Care Team Providers Care Exercise Physiology Professor Name Role Phone Duke De León MD Primary Care Provider [phone] Allergies No known active allergies Medications ATENOLOL 25 MG TAB take 1 tablet (25 mg) by oral route once daily 30 1 year 08/24/2007 Active HYDROCHLOROTHIAZ CHIKI 50 MG TAB take 1 tablet (50 mg) by oral route once daily 30 1 year 08/24/2007 Active K-DUR 20 MEQ TABIndications:H ypopotassemia take 1 tablet (20 meq) by oral route once daily with food 30 2 08/24/2007 Active Active Problems Problem Noted Date Diagnosed Date Hypopotassemia 08/24/2007 Unspecified essential hypertension Other and unspecified hyperlipidemia Immunizations Name Administration Dates Next Due AMB Influenza, IIV3 (Age >=3 years)([facility]) 06/17/2013 Influenza, IIV3 (Age >=3 years) 08/03/2007 [...] Recorded Sex Assigned at Not on file 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 Gender Identity Not on file Sexual Orientation Not on file Obstetrics History Last Filed Vital Signs Vital Sign Reading Time Taken Comments Blood Pressure 145/87 12/02/2007 9:16 AM CDT Pulse 157 12/02/2007 9:12 AM CDT Temperature 36.7 C (98.1 F) 12/02/2007 9:12 AM CDT Respiratory Rate 18 02/18/2007 1:00 PM CDT [...] booster 08/12/2015 08/12/2005 Pneumococcal series for age 50+ (1 of 1 - PCV) 12/25/2015 COVID-19 vaccine series (2023- season) 2024 Influenza for age 65+ 05/15/2024 06/17/2013, 007 RSV vaccine for adults or pr egnancy (1 - 1-dose 75+ series) 2025 Care Teams Exercise Physiology Professor Relationship Specialty Start Date End Date Duke De León MD [address] [place] [id number] PCP - General 12/27/05
[2024-09-28 17:54] LABS: Slide Review Reflex No
[2024-09-28 17:54] LABS: Appearance Urine Clear (Clear); Bilirubin Urine Negative (Negative); Blood Urine Trace-intact (Negative); Color Urine Yellow (Yellow); Glucose Urine Negative (Negative); Ketones Urine Negative (Negative); Leukocyte Esterase Urine Negative (Negative); Nitrite Urine Negative (Negative); Protein Urine 1+ (Negative); Specific Gravity Urine 1.025 (1.000-1.030); Urobilinogen Urine 0.2 (0.2-1.0); pH Urine 5.5 (5.0-8.5)
[2024-09-28 18:04] LABS: Chloride* 103 mmol/L (96-114); Potassium* 4.5 mmol/L (3.6-5.1); Sodium* 138 mmol/L (135-149)
[2024-09-28 18:07] LABS: Anion Gap 11 mEq/L (7-15); Carbon Dioxide* 24 mmol/L (20-32); Creatinine* 2.1 mg/dL (0.5-1.5); Est. Creatinine Clearance* 31.33; Estimated Glomerular Filt Rate 33 ml/min
[2024-09-28 18:08] LABS: Blood Urea Nitrogen* 37 mg/dL (7-30); Calcium* 9.1 mg/dL (8.4-10.6); Glucose* 108 mg/dL (60-115)
[2024-09-28 18:27] LABS: Bacteria Urine Few; RBC Urine 0-2 (0-2); Squamous Epithelial Cell Urine Few (None-Few); WBC Urine 0-2 (0-5)
[2024-09-28] MEDS: OSELTAMIVIR PHOSPHATE 75 MG CAPSULE PO (18:30)
[2024-09-28 18:42] VITALS: BP 134/63; PULSE 83; RESP 18; O2SAT 92
== END 2024-09-28 19:15 | disposition home or self-care (01) ==
PROVIDERS: Emergency Provider Emergency Medicine; PCP Internal Medicine
DX: J09.X2 Influenza due to identified novel influenza A virus with other respiratory manifestations (principal); R82.90 Unspecified abnormal findings in urine
CPT/HCPCS: 36415; 70450; 71046; 80048; 81001; 83605; 85025; 87086; 87631; 99283; 99284; A9270

== ENCOUNTER 2024-12-27 11:30 | Outpatient (RCR) | payer MEDICARE, SELFPAY ==
--- NOTE | 2024-07-05 09:36 | URNOTE ---
Prior auth is not required for Robert ([id number]). Services are based on medical necessity and follow medicare guidelines.
[2024-07-12 11:51] VITALS: BP 106/63; PULSE 61; RESP 16; TEMP 36.7; O2SAT 95
[2024-07-12] MEDS: ACETAMINOPHEN 325 MG TABLET 650 MG PO (12:08)
[2024-07-12] MEDS: LORATADINE 10 MG TABLET PO (12:08)
[2024-07-12] MEDS: 0.9 % SODIUM CHLORIDE 500 ML 500 ML 30 ML IV (12:30)
[2024-07-12] MEDS: [UNRECOGNIZED DRUG - MIXTURE] 259 MG IVPB (12:30)
[2024-07-26 11:39] VITALS: BP 121/72; PULSE 57; RESP 16; TEMP 35.7; O2SAT 97
[2024-07-26] MEDS: LORATADINE 10 MG TABLET PO (11:42)
[2024-07-26] MEDS: ACETAMINOPHEN 325 MG TABLET 650 MG PO (11:42)
[2024-07-26] MEDS: [UNRECOGNIZED DRUG - MIXTURE] 258 MG IVPB (12:04)
[2024-08-09 11:37] VITALS: BP 128/69; PULSE 64; RESP 16; TEMP 35.8; O2SAT 96
[2024-08-09] MEDS: LORATADINE 10 MG TABLET PO (12:01)
[2024-08-09] MEDS: ACETAMINOPHEN 325 MG TABLET 650 MG PO (12:01)
[2024-08-09] MEDS: 0.9 % SODIUM CHLORIDE 500 ML IV (12:21)
[2024-08-09] MEDS: SODIUM CHLORIDE 0.9 % (FLUSH) 10 ML SYRINGE IVF (12:21)
[2024-08-09] MEDS: [UNRECOGNIZED DRUG - MIXTURE] 259 MG IVPB (12:34)
[2024-08-23] MEDS: ACETAMINOPHEN 325 MG TABLET 650 MG PO (11:52)
[2024-08-23] MEDS: LORATADINE 10 MG TABLET PO (11:54)
[2024-08-23] MEDS: SODIUM CHLORIDE 0.9 % (FLUSH) 10 ML SYRINGE IVF (11:54)
[2024-08-23] MEDS: 0.9 % SODIUM CHLORIDE 500 ML IV (11:54)
[2024-08-23 12:05] VITALS: BP 116/60; PULSE 69; RESP 16; TEMP 36.5; O2SAT 96
[2024-08-23] MEDS: [UNRECOGNIZED DRUG - MIXTURE] 259 MG IVPB (12:18)
[2024-09-06 08:54] VITALS: BP 105/65; PULSE 56; RESP 16; TEMP 36.3; O2SAT 93
[2024-09-06] MEDS: SODIUM CHLORIDE 0.9 % (FLUSH) 10 ML SYRINGE IVF ×2 (09:29→11:22)
[2024-09-06] MEDS: ACETAMINOPHEN 325 MG TABLET 650 MG PO (09:29)
[2024-09-06] MEDS: LORATADINE 10 MG TABLET PO (09:29)
[2024-09-06] MEDS: [UNRECOGNIZED DRUG - MIXTURE] 258 MG IVPB (10:19)
--- NOTE | 2024-09-12 15:52 | ONC.NURNOTE ---
phoned billing office with questions about $4300 bill for 1st infusion- reports that they were not paying out of pocket at [facility]. Jenny in billing will look into the charges and call this blog writer back. Billing is asking us to talk to patient about if enrolled in a copay program for the medication- this office is unaware of programs.
[2024-09-20 11:40] VITALS: BP 115/64; PULSE 64; RESP 16; TEMP 36.1; O2SAT 96
[2024-09-20] MEDS: ACETAMINOPHEN 325 MG TABLET 650 MG PO (11:52)
[2024-09-20] MEDS: LORATADINE 10 MG TABLET PO (11:52)
[2024-09-20] MEDS: [UNRECOGNIZED DRUG - MIXTURE] 260 MG IVPB (12:11)
[2024-10-04 11:48] VITALS: BP 112/68; PULSE 69; RESP 16; TEMP 36.1; O2SAT 95
[2024-10-04 11:51] VITALS: BP 112/68; PULSE 69; RESP 16; TEMP 36.1; O2SAT 95
--- NOTE | 2024-10-04 11:51 | ONC.NURNOTE ---
Pt present for infusion. RN noted pt was in the ER for neuro changes and fever. Positive for Influenza and treated with Tamiflu. RN called [facility] and got ok to treat from Dr. Muñoz.
[2024-10-04] MEDS: ACETAMINOPHEN 325 MG TABLET 650 MG PO (11:57)
[2024-10-04] MEDS: LORATADINE 10 MG TABLET PO (11:57)
[2024-10-04] MEDS: 0.9 % SODIUM CHLORIDE 500 ML IV (11:58)
[2024-10-04] MEDS: SODIUM CHLORIDE 0.9 % (FLUSH) 10 ML SYRINGE IVF (11:58)
[2024-10-04] MEDS: [UNRECOGNIZED DRUG - MIXTURE] 260 MG IVPB (12:25)
[2024-10-18 11:39] VITALS: BP 103/58; PULSE 69; RESP 14; TEMP 36.1; O2SAT 97
[2024-10-18] MEDS: LORATADINE 10 MG TABLET PO (11:51)
[2024-10-18] MEDS: ACETAMINOPHEN 325 MG TABLET 650 MG PO (11:51)
[2024-10-18] MEDS: SODIUM CHLORIDE 0.9 % (FLUSH) 10 ML SYRINGE IVF (11:52)
[2024-10-18] MEDS: 0.9 % SODIUM CHLORIDE 500 ML IV (11:52)
[2024-10-18] MEDS: [UNRECOGNIZED DRUG - MIXTURE] 260 MG IVPB (12:20)
[2024-11-01 11:45] VITALS: BP 120/65; PULSE 61; RESP 16; TEMP 36.6; O2SAT 94
[2024-11-01] MEDS: LORATADINE 10 MG TABLET PO (12:02)
[2024-11-01] MEDS: ACETAMINOPHEN 325 MG TABLET 650 MG PO (12:03)
[2024-11-01] MEDS: [UNRECOGNIZED DRUG - MIXTURE] 258.5 MG IVPB (12:32)
[2024-11-01] MEDS: SODIUM CHLORIDE 0.9 % (FLUSH) 10 ML SYRINGE IVF (13:35)
[2024-11-15 11:37] VITALS: BP 108/67; PULSE 67; RESP 16; TEMP 36.4; O2SAT 95
[2024-11-15] MEDS: ACETAMINOPHEN 325 MG TABLET 650 MG PO (12:01)
[2024-11-15] MEDS: LORATADINE 10 MG TABLET PO (12:02)
[2024-11-15] MEDS: [UNRECOGNIZED DRUG - MIXTURE] 258 MG IVPB (12:23)
[2024-11-29] MEDS: ACETAMINOPHEN 325 MG TABLET 650 MG PO (12:05)
[2024-11-29] MEDS: LORATADINE 10 MG TABLET PO (12:05)
[2024-11-29] MEDS: 0.9 % SODIUM CHLORIDE 250 ml IV (12:15)
[2024-11-29] MEDS: [UNRECOGNIZED DRUG - MIXTURE] 259 MG IVPB (12:33)
[2024-11-29] MEDS: SODIUM CHLORIDE 0.9 % (FLUSH) 10 ML SYRINGE IVF (12:33)
[2024-12-13 11:39] VITALS: BP 148/69; PULSE 51; RESP 16; TEMP 35.9; O2SAT 97
[2024-12-13] MEDS: ACETAMINOPHEN 325 MG TABLET 650 MG PO (12:00)
[2024-12-13] MEDS: LORATADINE 10 MG TABLET PO (12:00)
[2024-12-13] MEDS: 0.9 % SODIUM CHLORIDE 250 ml IV (12:10)
[2024-12-13] MEDS: [UNRECOGNIZED DRUG - MIXTURE] 260 MG IVPB (12:46)
[2024-12-27 11:36] VITALS: BP 133/66; PULSE 69; RESP 18; TEMP 36.1; O2SAT 95
[2024-12-27] MEDS: ACETAMINOPHEN 325 MG TABLET 650 MG PO (12:10)
[2024-12-27] MEDS: LORATADINE 10 MG TABLET PO (12:10)
[2024-12-27] MEDS: [UNRECOGNIZED DRUG - MIXTURE] 259 MG IVPB (12:27)
== END 2025-01-08 23:59 | disposition home or self-care (01) ==
LOC: CCIC 11:30
PROVIDERS: PCP Internal Medicine; Referring Provider Internal Medicine; Visit Provider Clinical Nurse Specialist
DX: Z00.6 Encounter for examination for normal comparison and control in clinical research program (principal); G30.9 Alzheimer's disease, unspecified; F02.80 Dementia in other diseases classified elsewhere, unspecified severity, without behavioral disturbance, psychotic disturbance, mood disturbance, and anxiety
CPT/HCPCS: 96365; A9270; J0174; J7030; J7050

== ENCOUNTER 2025-06-07 09:59 | Outpatient (CLI) | payer MEDICARE, SELFPAY | END 2025-06-07 10:00 | disposition home or self-care (01) | PROVIDERS: PCP Internal Medicine; Visit Provider Internal Medicine | DX: R53.1 Weakness (principal); R39.89 Other symptoms and signs involving the genitourinary system | CPT/HCPCS: 80053; 84443; 87086; G0103 ==

== ENCOUNTER 2025-06-09 11:30 | Outpatient (RCR) | payer MEDICARE, SELFPAY ==
[2025-01-10 11:42] VITALS: BP 124/64; PULSE 64; RESP 18; TEMP 36.7; O2SAT 98
[2025-01-10] MEDS: LORATADINE 10 MG TABLET PO (12:04)
[2025-01-10] MEDS: ACETAMINOPHEN 325 MG TABLET 650 MG PO (12:05)
[2025-01-10] MEDS: SODIUM CHLORIDE 0.9 % (FLUSH) 10 ML SYRINGE IVF (12:08)
[2025-01-10] MEDS: [UNRECOGNIZED DRUG - MIXTURE] 260 MG IVPB (12:37)
[2025-01-24 11:38] VITALS: BP 131/71; PULSE 53; RESP 16; TEMP 36.3; O2SAT 95
[2025-01-24] MEDS: ACETAMINOPHEN 325 MG TABLET 650 MG PO (11:54)
[2025-01-24] MEDS: LORATADINE 10 MG TABLET PO (11:54)
[2025-01-24] MEDS: SODIUM CHLORIDE 0.9 % (FLUSH) 10 ML SYRINGE IVF (11:55)
--- NOTE | 2025-01-24 12:21 | ONC.NURNOTE ---
[facility] notified by Pharmacy that full dose not available today. Dose of 780 mg is within 10% of pt's calculated dose based on today's weight (10 mg/kg - 81.8 kg = 818 mg). , Tran, aware and is in agreement with proceeding.
[2025-01-24] MEDS: [UNRECOGNIZED DRUG - MIXTURE] 258 MG IVPB (12:25)
[2025-02-07 11:39] VITALS: BP 118/67; PULSE 52; RESP 14; TEMP 36.1; O2SAT 97
[2025-02-07] MEDS: LORATADINE 10 MG TABLET PO (11:43)
[2025-02-07] MEDS: ACETAMINOPHEN 325 MG TABLET 650 MG PO (11:45)
[2025-02-07] MEDS: SODIUM CHLORIDE 0.9 % (FLUSH) 10 ML SYRINGE IVF (12:02)
[2025-02-07] MEDS: [UNRECOGNIZED DRUG - MIXTURE] 260 MG IVPB (12:05)
[2025-02-21 11:41] VITALS: BP 122/67; PULSE 63; RESP 16; TEMP 36.8; O2SAT 95
[2025-02-21] MEDS: LORATADINE 10 MG TABLET PO (12:00)
[2025-02-21] MEDS: ACETAMINOPHEN 325 MG TABLET 650 MG PO (12:00)
[2025-02-21] MEDS: SODIUM CHLORIDE 0.9 % (FLUSH) 10 ML SYRINGE IVF (12:00)
[2025-02-21] MEDS: [UNRECOGNIZED DRUG - MIXTURE] 260 MG IVPB (12:21)
[2025-03-07 11:37] VITALS: BP 126/67; PULSE 67; RESP 15; TEMP 36.4; O2SAT 96
[2025-03-07] MEDS: LORATADINE 10 MG TABLET PO (11:59)
[2025-03-07] MEDS: SODIUM CHLORIDE 0.9 % (FLUSH) 10 ML SYRINGE IVF (12:04)
[2025-03-07] MEDS: ACETAMINOPHEN 325 MG TABLET 650 MG PO (12:05)
[2025-03-07] MEDS: [UNRECOGNIZED DRUG - MIXTURE] 259 MG IVPB (12:26)
[2025-03-21 11:41] VITALS: BP 113/64; PULSE 64; RESP 16; TEMP 36.5; O2SAT 96
[2025-03-21] MEDS: ACETAMINOPHEN 325 MG TABLET 650 MG PO (11:47)
[2025-03-21] MEDS: LORATADINE 10 MG TABLET PO (11:47)
[2025-03-21] MEDS: SODIUM CHLORIDE 0.9 % (FLUSH) 10 ML SYRINGE IVF ×2 (11:50→13:11)
[2025-03-21] MEDS: [UNRECOGNIZED DRUG - MIXTURE] 258 MG IVPB (12:08)
[2025-04-04 11:41] VITALS: BP 128/58; PULSE 56; TEMP 36.2; O2SAT 97
[2025-04-04] MEDS: LORATADINE 10 MG TABLET PO (12:00)
[2025-04-04] MEDS: SODIUM CHLORIDE 0.9 % (FLUSH) 10 ML SYRINGE IVF (12:00)
[2025-04-04] MEDS: ACETAMINOPHEN 325 MG TABLET 650 MG PO (12:01)
[2025-04-04] MEDS: [UNRECOGNIZED DRUG - MIXTURE] 259 MG IVPB (12:26)
[2025-04-18 13:33] VITALS: BP 116/64; PULSE 59; TEMP 36.2; O2SAT 96
[2025-04-18] MEDS: SODIUM CHLORIDE 0.9 % (FLUSH) 10 ML SYRINGE IVF (13:44)
[2025-04-18] MEDS: LORATADINE 10 MG TABLET PO (13:44)
[2025-04-18] MEDS: [UNRECOGNIZED DRUG - MIXTURE] 260 MG IVPB (14:06)
--- NOTE | 2025-04-18 15:41 | ONC.NURNOTE ---
Pt present at [facility] for Lequembi infusion. Per pt's , Tran, they will be out of town in 2 weeks when Melecio is due for his next infusion. RN instructed Tran to call the neurologist for guidance as to how to shift his schedule. She will do that and call [facility] back with instructions.
[2025-05-09 11:40] VITALS: BP 124/65; PULSE 64; RESP 15; TEMP 36.2; O2SAT 95
[2025-05-09] MEDS: ACETAMINOPHEN 325 MG TABLET 650 MG PO (11:59)
[2025-05-09] MEDS: LORATADINE 10 MG TABLET PO (11:59)
[2025-05-09] MEDS: [UNRECOGNIZED DRUG - MIXTURE] 259 MG IVPB (12:30)
[2025-05-23 11:36] VITALS: BP 115/65; PULSE 64; RESP 16; TEMP 36.1; O2SAT 95
[2025-05-23] MEDS: ACETAMINOPHEN 325 MG TABLET 650 MG PO (12:00)
[2025-05-23] MEDS: LORATADINE 10 MG TABLET PO (12:01)
[2025-05-23] MEDS: SODIUM CHLORIDE 0.9 % (FLUSH) 10 ML SYRINGE IVF ×2 (12:04→13:27)
[2025-05-23] MEDS: [UNRECOGNIZED DRUG - MIXTURE] 259 MG IVPB (12:25)
[2025-06-09 11:40] VITALS: BP 90/51; PULSE 71; RESP 16; TEMP 36.1; O2SAT 96
[2025-06-09] MEDS: LORATADINE 10 MG TABLET PO (11:43)
[2025-06-09] MEDS: ACETAMINOPHEN 325 MG TABLET 650 MG PO (11:43)
[2025-06-09] MEDS: SODIUM CHLORIDE 0.9 % (FLUSH) 10 ML SYRINGE IVF (11:55)
[2025-06-09] MEDS: [UNRECOGNIZED DRUG - MIXTURE] 260 MG IVPB (12:07)
--- NOTE | 2025-06-09 13:00 | ONC.NURNOTE ---
Addendum entered by Janet Samayoa RN 06/15/25 08:51: Pt's , Tran, called this morning to report that she received a call from Dr. Muñoz's office instructing her to cancel Melecio's 06/27 infusion appointment. RN will do so. Will await further instruction from Dr. Muñoz going forward. Addendum entered by Janet Samayoa RN 06/14/25 11:55: RN contacted [facility] today and spoke with Dr. Muñoz's nurse, Mary SOW and reported the below information. Mary states that she spoke with pt's , Tran last Thursday and there were notes in their system ok to proceed per Dr. Muñoz. RN asked to get that documentation prior to pt's next infusion at [facility] on 06/27/2025. She will do so. Also of note, pt is due to see MD on 07/03/2025 where they will discuss timing of transitioning pt to monthly subcutaneous Lequembi as pt was to switch after 18 months of infusion. End of June will be 18 months since starting. JUANJOSE Hernandez is aware that pt is also scheduled for another infusion on 07/11 so to let us know how to proceed. She agreed. Addendum entered and electronically signed by Karely Wren APRN 06/13/25 10:26: 06/13/[address] Muñoz's care team at [facility] regarding cognitive changes and need for assessment prior to next leqembi 06/27/25. Original Note: RN came upon pt walking down the more before his infusion was scheduled to be completed. Pt removed his own IV and was walking out of [facility]. RN reoriented pt and placed a new IV and restarted Lequembi. Called pt's , Tran, and asked her to return to [facility]. Discussed case with Karely Wren APRN ZANJERO who reviewed drug monitoring and indicated that pt needs to see his neurologist at [facility] prior to any further Lequembi infusion. Tran, pt's , aware.
== END 2025-07-09 23:59 | disposition home or self-care (01) ==
LOC: CCIC 11:30
PROVIDERS: PCP Internal Medicine; Referring Provider Internal Medicine; Visit Provider Clinical Nurse Specialist
DX: Z00.6 Encounter for examination for normal comparison and control in clinical research program (principal); G30.9 Alzheimer's disease, unspecified; F02.80 Dementia in other diseases classified elsewhere, unspecified severity, without behavioral disturbance, psychotic disturbance, mood disturbance, and anxiety
CPT/HCPCS: 96365; A9270; J0174; J7050